=== PATIENT | male | born 1990 | race Caucasian/White ===

== ENCOUNTER 2016-11-28 04:12 | Emergency (ER) | payer OTHER ==
[~2016-11-28] VITALS: Ht 170.2 cm; Wt 145.4 kg
[~2016-11-28 04:12] MED LIST: NOCURR
[2016-11-28 08:13] VITALS: BP 138/88
== END 2016-11-28 08:33 | disposition home or self-care (01) ==
LOC: EMS 04:13
DX: G56.03 Carpal tunnel syndrome, bilateral upper limbs (principal); F17.210 Nicotine dependence, cigarettes, uncomplicated; F12.90 Cannabis use, unspecified, uncomplicated
CPT/HCPCS: 99283; 99406